=== PATIENT | male | born 1975 | race Caucasian/White ===

== ENCOUNTER 2020-10-25 16:24 | Emergency (ER) | payer OTHER ==
[2020-10-25 18:03] LABS: HEMOGLOBIN 16.2 gm/dl (14.0-17.5); RED BLOOD COUNT 5.04 M/UL (4.20-5.50); WHITE BLOOD COUNT 8.7 K/UL (4.5-11.0)
[2020-10-25 18:38] LABS: BUN/CREATININE RATIO 9 (0-10)
== END 2020-10-25 22:00 | disposition home or self-care (01) ==
LOC: ER1 16:24
PROVIDERS: Emergency Medicine
DX: K63.89 Other specified diseases of intestine (principal); F17.200 Nicotine dependence, unspecified, uncomplicated
CPT/HCPCS: 80053; 81001; 82550; 82553; 83690; 83874; 84484; 85025; 96374; 96375; 99284; J2270; J2405; J7030; Q9967